=== PATIENT | male | born 1955 | race Caucasian/White ===

== ENCOUNTER 2018-06-17 14:28 | Inpatient (IN) | payer OTHER ==
[2018-06-17] MEDS ORDERED: NORMAL SALINE 1000 ML 1,000 ML IV ONE (14:59)
[2018-06-17] MEDS ORDERED: THIAMINE HCL 100 MG, FOLIC ACID 1 MG in NORMAL SALINE 250 ML IV ONE (14:59)
[2018-06-17] MEDS ORDERED: LORAZEPAM INJ 2 MG/1 ML VIAL IV ONE ×2 (14:59→17:00)
[2018-06-17] MEDS ORDERED: NICOTINE 21 MG/24 HR PATCH.TD24 TD ONE (15:05)
[2018-06-17] MEDS ORDERED: DIPH/PERTUSS(ACELL)/TETANUS VAC/PF 0.5 ML SYR (>=10YO) IM ONE (15:05)
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
[2018-06-17 16:24] LABS: ABSOLUTE BASOPHILS # (AUTO) 0.1 10^3/uL (0.0-0.2); ABSOLUTE LYMPHOCYTES (AUTO) 1.4 10^3/uL (0.5-4.7); ABSOLUTE MONOCYTES (AUTO) 0.5 10^3/uL (0.1-1.4); ABSOLUTE NEUT (AUTO) 3.3 10^3/uL (1.7-8.2); EOSINOPHILS % (AUTO) 0.3 % (0-6); HEMATOCRIT 51.8 % (37.9-51.0); HEMOGLOBIN 17.9 g/dL (13.5-17.0); LYMPHOCYTES % (AUTO) 26.5 % (13-45); MEAN CORPUSCULAR HEMOGLOBIN 33.5 pg (27.0-33.4); MEAN CORPUSCULAR HGB CONC 34.6 g/dL (32.0-36.0); MEAN CORPUSCULAR VOLUME 97 fl (80-97); MONOCYTES % (AUTO) 9.1 % (3-13); PLATELET COUNT 118 10^3/uL (150-450); RED BLOOD COUNT 5.36 10^6/uL (4.35-5.55); RED CELL DISTRIBUTION WIDTH 13.6 % (11.5-14.0); SEGMENTED NEUTROPHILS % (AUTO) 62.1 % (42-78); TOTAL CELLS COUNTED % (AUTO) 100 %; WHITE BLOOD COUNT 5.3 10^3/uL (4.0-10.5)
[2018-06-17] MEDS ORDERED: THIAMINE HCL INJ 200 MG/2 ML VIAL ONE (16:37)
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
[2018-06-17 16:46] LABS: ALANINE AMINOTRANSFERASE 131 U/L (21-72); ALBUMIN 4.7 g/dL (3.5-5.0); ALKALINE PHOSPHATASE 99 U/L (38-126); ANION GAP 14 (5-19); ASPARTATE AMINO TRANSFERASE 166 U/L (17-59); BILIRUBIN,DIRECT 0.5 mg/dL (0.0-0.4); BILIRUBIN,TOTAL 0.7 mg/dL (0.2-1.3); BLOOD UREA NITROGEN 9 mg/dL (7-20); CALCIUM 9.3 mg/dL (8.4-10.2); CARBON DIOXIDE 28 mmol/L (22-30); CHLORIDE 100 mmol/L (98-107); GLUCOSE 101 mg/dL (75-110); POTASSIUM 4.1 mmol/L (3.6-5.0); TOTAL PROTEIN 8.2 g/dL (6.3-8.2)
[2018-06-17 16:54] LABS: ACETAMINOPHEN < 10 ug/mL (10-30); SALICYLATE < 1.0 mg/dL (2.0-20.0)
[2018-06-17 16:56] LABS: ALCOHOL 328 mg/dL (NONE DETECTED)
--- NOTE | 2018-06-17 18:19 | RADIOLOGY REPORT (SQ) ---
EXAM DESCRIPTION: CT CERVICAL SPINE WITHOUT COMPLETED DATE/TIME: 06/17/2018 6:13 pm REASON FOR STUDY: fall COMPARISON: None. TECHNIQUE: Axial images acquired through the cervical spine without intravenous contrast. Images re viewed with lung, soft tissue and bone windows. Reconstructed coronal and sagittal MPR images review ed. Images stored on PACS. All CT scanners at this facility use dose modulation, iterative reconstruction, and/or weight based d osing when appropriate to reduce radiation dose to as low as reasonably achievable (ALARA). [facility]: Dose Right [facility]: CareDose [facility]: Dose Right [facility]: Teradose 4D [facility]: [employer] RADIATION DOSE: CT Rad equipment meets quality standard of care and radiation dose reduction techniq ues were employed. CTDIvol: 19.4 mGy. DLP: 405 mGy-cm. mGy. LIMITATIONS: None. FINDINGS: ALIGNMENT: Anatomic. MINERALIZATION: Normal. VERTEBRAL BODIES: No fractures or dislocation. DISCS: Multilevel disc space narrowing with osteophytes. FACETS, LATERAL MASSES, POSTERIOR ELEMENTS: Facet arthropathy. No fractures. No dislocation. No ac [place] findings. HARDWARE: None in the spine. VISUALIZED RIBS: No fractures. LUNG APICES AND SOFT TISSUES: No significant or acute findings. OTHER: No other significant finding. IMPRESSION: CHRONIC DEGENERATIVE CHANGES. NO ACUTE FINDINGS. TECHNICAL DOCUMENTATION: JOB ID: [id number] Quality ID # [id number]: Final reports with documentation of one or more dose reduction techniques (e.g., Au tomated exposure control, adjustment of the mA and/or kV according to patient size, use of iterative reconstruction technique) 2010 [employer]- All Rights Reserved Reading location - IP/workstation name: [email or web address]
--- NOTE | 2018-06-17 18:20 | RADIOLOGY REPORT (SQ) ---
EXAM DESCRIPTION: CT HEAD WITHOUT COMPLETED DATE/TIME: 06/17/2018 6:13 pm REASON FOR STUDY: fall COMPARISON: None. TECHNIQUE: Axial images acquired through the brain without intravenous contrast. Images reviewed wi th bone, brain and subdural windows. Additional sagittal and coronal reconstructions were generated. Images stored on PACS. All CT scanners at this facility use dose modulation, iterative reconstruction, and/or weight based d osing when appropriate to reduce radiation dose to as low as reasonably achievable (ALARA). [facility]: Dose Right [facility]: CareDose [facility]: Dose Right [facility]: Teradose 4D [facility]: [employer] RADIATION DOSE: CT Rad equipment meets quality standard of care and radiation dose reduction techniq ues were employed. CTDIvol: 53.2 mGy. DLP: 1017 mGy-cm. mGy. LIMITATIONS: None. FINDINGS: VENTRICLES: Normal size and contour. CEREBRUM: No masses. No hemorrhage. No midline shift. No evidence for acute infarction. Normal gra y/white matter differentiation. No areas of low density in the white matter. CEREBELLUM: No masses. No hemorrhage. No alteration of density. No evidence for acute infarction. EXTRAAXIAL SPACES: No fluid collections. No masses. ORBITS AND GLOBE: No intra- or extraconal masses. Normal contour of globe without masses. CALVARIUM: No fracture. PARANASAL SINUSES: No fluid or mucosal thickening. SOFT TISSUES: No mass or hematoma. OTHER: No other significant finding. IMPRESSION: NORMAL BRAIN CT WITHOUT CONTRAST. EVIDENCE OF ACUTE STROKE: NO. COMMENT: Quality ID # [id number]: Final reports with documentation of one or more dose reduction techniques (e.g., Automated exposure control, adjustment of the mA and/or kV according to patient size, use of iterative reconstruction technique) TECHNICAL DOCUMENTATION: JOB ID: [id number] [employer]- All Rights Reserved Reading location - IP/workstation name: [email or web address]
[2018-06-17] MEDS ORDERED: THIAMINE HCL 100 MG in NORMAL SALINE 50 ML IV ONE (19:24)
--- NOTE | 2018-06-17 19:31 | EKG REPORT ---
SEVERITY:- NORMAL ECG - SINUS RHYTHM : Confirmed by: Rom De Anda MD 17-Jun-2018 19:30:50
--- NOTE | 2018-06-17 22:08 | ER Document Report ---
ED General - General Chief Complaint: Psych Problem Stated Complaint: SUICIDAL IDEATION Time Seen by Provider: 06/17/18 14:51 Primary Care Provider: SARITHA,UZAIR [Primary Care Provider] - Follow up as needed Mode of Arrival: Medic Information source: Patient Notes: This is a 62-year-old man with a history of alcohol abuse, homelessness who was brought in by EMS with suicidal patient is an setting of alcohol intoxication. Patient does report that he has been falling in the setting of drinking alcohol. He does have some superficial abrasions to his fingers. He denies any significant pain at this time. Patient does have a history of alcohol withdrawal seizures. TRAVEL OUTSIDE OF THE [place] IN LAST 30 DAYS: No - HPI Onset: Just prior to arrival Onset/Duration: Gradual Quality of pain: No pain Severity: None Pain Level: Denies Associated symptoms: denies: Chest pain, Fever, Shortness of breath Exacerbated by: Denies Relieved by: Denies Similar symptoms previously: Yes Recently seen / treated by doctor: Yes - Related Data Allergies/Adverse Reactions: No Known Allergies Allergy (Verified 06/17/18 14:31) Past Medical History - General Information source: Patient - Social History Smoking Status: Current Every Day Smoker Cigarette use (# per day): Yes - 1 pack/day Chew tobacco use (# tins/day): No Frequency of alcohol use: Heavy Drug Abuse: None Lives with: Homeless Family History: None Patient has suicidal ideation: Yes Patient has homicidal ideation: No - Past Medical History Cardiac Medical History: Reports: Hx Hypercholesterolemia, Hx Hypertension Pulmonary Medical History: Reports: Hx COPD Renal/ Medical History: Denies: Hx Peritoneal Dialysis Musculoskeletal Medical History: Reports Hx Arthritis - bilateral hips Psychiatric Medical History: Reports: Hx Depression - Anxiety Surgical Hx: Negative Review of Systems - Review of Systems Constitutional: denies: Chills, Fever EENT: No symptoms reported Cardiovascular: denies: Chest pain, Palpitations, Heart racing Respiratory: No symptoms reported Physical Exam - Vital signs Vitals: Temp Pulse Resp BP Pulse Ox 98.2 F 106 H 20 133/65 H 99 06/17/18 14:41 06/17/18 14:41 06/17/18 14:41 06/17/18 14:41 06/17/18 14:41 Notes: Physical exam: GENERAL: Acutely intoxicated 62-year-old man. He is oriented x3. HEAD: Atraumatic, normocephalic. EYES: Pupils equal round and reactive to light, extraocular movements intact, sclera anicteric, conjunctiva are normal. ENT: TMs normal, nares patent, oropharynx clear without exudates. Moist mucous membranes. NECK: Normal range of motion, supple without obvious mass or JVD. LUNGS: Breath sounds clear to auscultation bilaterally and equal. No wheezes rales or rhonchi. HEART: Regular rate and rhythm without murmurs, rubs or gallops. ABDOMEN: Soft, normoactive bowel sounds. No tenderness to palpation. No guarding, no rebound. No masses appreciated. EXTREMITIES: Normal range of motion, no pitting or edema. No clubbing or cyanosis. NEUROLOGICAL: Cranial nerves II through XII grossly intact. Normal speech, moving all extremities. PSYCH: Normal mood, normal affect. SKIN: Patient does have abrasions to the fingers. Course - Vital Signs Vital signs: Temp Pulse Resp BP Pulse Ox 98.2 F 106 H 24 H 133/65 H 92 06/17/18 14:41 06/17/18 14:41 06/17/18 19:25 06/17/18 14:41 06/17/18 19:25 - Laboratory Result Diagrams: 06/17/18 15:50 06/17/18 15:50 Laboratory results interpreted by me: 06/17/18 06/17/18 15:50 15:50 Hgb 17.9 H Hct 51.8 H MCH 33.5 H Plt Count 118 L Direct Bilirubin 0.5 H AST 166 H ALT 131 H Salicylates < 1.0 L Acetaminophen < 10 L Serum Alcohol 328 H* - Diagnostic Test Radiology reviewed: Image reviewed, Reports reviewed - CT of the head shows no acute bleed. CT of the cervical spine shows no acute fractures. - EKG Interpretation by Ks Rhythm: NSR - EKG shows normal sinus rhythm with a ventricular rate of 96, no acute ST-T wave changes. QT corrected is 440 Discharge - Discharge Clinical Impression: Acute alcohol intoxication, Suicidal ideation Condition: Stable Disposition: PSYCH HOSP/UNIT [facility] - Follow up as needed
[2018-06-18] MEDS: LORAZEPAM 1 MG TABLET PO PRN ×2 (00:34→04:55)
[2018-06-18] MEDS ORDERED: DIAZEPAM INJ 10 MG/2 ML DISP.SYRIN IV ONE (05:05)
[2018-06-18] MEDS ORDERED: LORAZEPAM 1 MG TABLET ONE (05:58)
[2018-06-18 08:10] LABS: APPEARANCE,URINE CLEAR; BILIRUBIN,URINE NEGATIVE (NEGATIVE); COLOR,URINE YELLOW; GLUCOSE, URINE NEGATIVE (NEGATIVE); KETONES,URINE NEGATIVE (NEGATIVE); LEUKOCYTE ESTERASE,URINE NEGATIVE (NEGATIVE); NITRITE,URINE NEGATIVE (NEGATIVE); PROTEIN,URINE NEGATIVE (NEGATIVE); UROBILINOGEN,URINE NEGATIVE mg/dL (<2.0)
[2018-06-18 08:36] LABS: URINE AMPHETAMINES SCREEN NEGATIVE; URINE BARBITURATES SCREEN NEGATIVE; URINE BENZODIAZEPINES SCREEN UNCONFIRMED POSITIVE; URINE COCAINE SCREEN NEGATIVE; URINE MARIJUANA (THC) SCREEN NEGATIVE; URINE METHADONE SCREEN NEGATIVE; URINE PHENCYCLIDINE SCREEN NEGATIVE
[2018-06-18] MEDS ORDERED: ONDANSETRON 4 MG TAB.RAPDIS PO PRN (09:56)
--- NOTE | 2018-06-18 09:56 | ER Document Report ---
Doctor's Note Notes: 06/18/18 09:50 Rounds: Chart reviewed and patient interviewed. Patient came in complaining of feeling suicidal and being depressed. Summary of his visit: Patient is homeless for the past 3-4 days. Heavy alcohol drinker. History of PTSD. Patient says he is been unable to walk for the past week. Has fine tremor of both hands whenever he is not drinking alcohol. When he came in yesterday afternoon, his blood alcohol was 328. He says his last alcohol intake was about 9 AM yesterday morning when he had a beer. Only other significant labs as his hemoglobin is 17.9. Patient is a cigarette smoker. Patient has not exhibited any altered mental status. He had CT scan of his head which was normal. Patient' has not shown any altered mental status, but has complained of having a "Shitty diaper" on several times in the nursing staff says that he does not have any soiled diapers on.. Vital signs have been essentially normal except for his tachycardia of about 120. His oxygen saturation is in the low 90s on 2 L of oxygen. Patient has a history of COPD. Not on any medications. Patient has a fine tremor of both hands. Cannot stand. Has been requiring fairly significant doses of Ativan for sedation. Patient is obviously unable to be discharged as an outpatient so hospitalist was called and patient will be admitted to [facility] for alcohol withdrawal, pending DTs, alcohol abuse, PTSD, suicidal ideation and depression.
--- NOTE | 2018-06-18 10:11 | PSYCHOLOGICAL NOTE ---
Psych Note - Psych Note Date seen by psych provider: 06/18/18 Time seen by psych provider: 07:55 Psych Note: Reason for consult: SI, ETOH detox Contact Permissions: None Patient is a 62 yo male presenting to the ED via EMS for concerns of ETOH detox, SI, and homelessness. Check in conducted with patient patient continues to endorse passive suicidal ideation; 'I don't want to be here but I don't want to do anything myself (when discussing suicide)." Patient continues to present dysphoric with significant tremors. Patient reports not feeling well due to the alcohol withdrawal. Patient is having difficultly with evaluation due to active withdrawal. Head CT 06/17/2018 No findings No medication recommendations at this time Diagnosis: Alcohol Use Disorder Severe Homelessness Major Depressive Disorder, per pt hx Post Traumatic Stress Disorder, per pt hx Impression/Plan: Patient is recommended for continued IVC. Patient reports plan of hanging himself upon arrival to [facility] ED, today denies plan but continues to endorse suicidal ideation. Patient is having difficultly with evaluation due to medical status; active withdrawal from alcohol. Patient will be re-evaluated. Consulted Dr. Chavez in the care and treatment of this patient and ED physician who is in agreement with disposition and recommendation.
--- NOTE | 2018-06-18 10:28 | RADIOLOGY REPORT (SQ) ---
EXAM DESCRIPTION: CHEST SINGLE VIEW COMPLETED DATE/TIME: 06/18/2018 10:15 am REASON FOR STUDY: copd COMPARISON: None. EXAM PARAMETERS: NUMBER OF VIEWS: One view. TECHNIQUE: Single frontal radiographic view of the chest acquired. RADIATION DOSE: NA LIMITATIONS: None. FINDINGS: LUNGS AND PLEURA: No opacities, masses or pneumothorax. No pleural effusion. MEDIASTINUM AND HILAR STRUCTURES: No masses. Contour normal. HEART AND VASCULAR STRUCTURES: Heart normal in size. Normal vasculature. BONES: No acute findings. HARDWARE: None in the chest. OTHER: No other significant finding. IMPRESSION: 1. NO ACUTE RADIOGRAPHIC FINDING IN THE CHEST. TECHNICAL DOCUMENTATION: JOB ID: [id number] [employer]- All Rights Reserved Reading location - IP/workstation name: [email or web address]
[2018-06-18] MEDS ORDERED: METOPROLOL TARTRATE PF/INJ 5 MG/5 ML SDV IV PRN (10:31)
[2018-06-18] MEDS: ENOXAPARIN SODIUM INJ 30 MG/0.3 ML DISP.SYRIN SUBCUT SCH (10:38)
[2018-06-18] MEDS: LORAZEPAM INJ 2 MG/1 ML VIAL IV PRN ×3 (10:38→18:39)
[2018-06-18] MEDS: FAMOTIDINE 20 MG TABLET PO SCH ×2 (10:38→22:31)
[2018-06-18] MEDS: METOPROLOL SUCCINATE 25 MG TAB.SR.24H PO SCH (11:23)
[2018-06-18] MEDS: DIAZEPAM 5 MG TABLET PO SCH ×2 (11:23→17:52)
[2018-06-18] MEDS: NICOTINE 21 MG/24 HR PATCH.TD24 TD SCH (11:24)
[2018-06-18] MEDS: BEER PO SCH ×2 (11:25→13:52)
[2018-06-18 14:37] LABS: ALANINE AMINOTRANSFERASE 100 U/L (21-72); ALKALINE PHOSPHATASE 116 U/L (38-126); ANION GAP 11 (5-19); ASPARTATE AMINO TRANSFERASE 142 U/L (17-59); BILIRUBIN,DIRECT 0.4 mg/dL (0.0-0.4); BILIRUBIN,TOTAL 1.4 mg/dL (0.2-1.3); BLOOD UREA NITROGEN 10 mg/dL (7-20); CALCIUM 9.3 mg/dL (8.4-10.2); CARBON DIOXIDE 27 mmol/L (22-30); CHLORIDE 99 mmol/L (98-107); GLUCOSE 83 mg/dL (75-110); POTASSIUM 3.5 mmol/L (3.6-5.0); TOTAL PROTEIN 6.8 g/dL (6.3-8.2)
[2018-06-18 16:08] LABS: HEMATOCRIT 43.5 % (37.9-51.0); MEAN CORPUSCULAR HEMOGLOBIN 33.6 pg (27.0-33.4); MEAN CORPUSCULAR HGB CONC 34.9 g/dL (32.0-36.0); MEAN CORPUSCULAR VOLUME 96 fl (80-97); RED BLOOD COUNT 4.53 10^6/uL (4.35-5.55); RED CELL DISTRIBUTION WIDTH 13.3 % (11.5-14.0); WHITE BLOOD COUNT 5.9 10^3/uL (4.0-10.5)
[2018-06-18 16:26] LABS: HEMOGLOBIN 15.2 g/dL (13.5-17.0); PLATELET COUNT 85 10^3/uL (150-450)
--- NOTE | 2018-06-18 17:03 | PDOC H&P ---
History of Present Illness Admission Date/PCP: 06/18/18 10:04 [facility] Patient complains of: SI. ETOH INTOXICATION. History of Present Illness: JASMEET RIBEIRO is a 62 year old male who presented to [facility] for ETOH intoxication and suicidal ideation. The patient states he moved to [place] to live with his son, "which has been a nightmare." He states he recently became homeless because he "no longer lives with" his son - does not indicate if he left on his own or if son kicked him out. The patient stated he has a plan to hang himself. Upon arrival to the ED the patient's BAL was 328. The patient was seen by PSYCH and placed on IVC papers. Unfortunately, the patient remained in the emergency department for nearly 24 hours before being admitted to the hospitalist service. During that time the patient received multiple IVF boluses and doses of Ativan, but he was deemed unfit for discharge by the ED physician. Upon assessment, the patient is resting in bed on room air. He is tachycardic, hypertensive, agitated, anxious, tremulous and having difficulty answering all interview questions appropriately. The patient has no major complaints at the time of the interview other than feeling anxious. When asked about his suicidal ideation it is "beginning to improve," he no longer feels "as bad" as when he checked in. Patient endorses a history of seizures when withdrawing from alcohol. States no one has ever witnessed him having a seizure, but he will "wake up on the floor and feel very disoriented." The patient states that he wants to get help, that he wants to stop drinking, and that he wants to move away from [place]. The patient states he has a number of relatives that live out of state who can help support him. Patient was seen by a member of the psych team, who felt that the patient needed to be placed on IVC papers. The patient was admitted to the hospitalist service for ETOH withdrawal. Past Medical History Cardiac Medical History: Reports: Hyperlipidema, Hypertension Pulmonary Medical History: Reports: Chronic Obstructive Pulmonary Disease (COPD) Musculoskeltal Medical History: Reports: Arthritis - bilateral hips Psychiatric Medical History: Reports: Alcohol Dependency, Depression - Anxiety, Post Traumatic Stress Disorder, Tobacco Dependency Past Surgical History Past Surgical History: Reports: None Social History Information Source: Patient Lives with: Homeless - previously lived with son Smoking Status: Current Every Day Smoker Frequency of Alcohol Use: Heavy - 4-5 40oz beers per day Drugs: None Hx Prescription Drug Abuse: No - Advance Directive Resuscitation Status: Full Code Family History Family History: Malignancy Parental Family History Reviewed: Yes Children Family History Reviewed: Yes Sibling(s) Family History Reviewed.: Yes Medication/Allergy Home Medications: No Home Medications 06/17/18 Allergies/Adverse Reactions: No Known Allergies Allergy (Verified 06/17/18 14:31) Review of Systems ROS unobtainable: Due to mental status Physical Exam Vital Signs: Temp Pulse Resp BP Pulse Ox 98.2 F 106 H 22 H 123/104 H 90 L 06/17/18 14:41 06/17/18 14:41 06/18/18 13:00 06/18/18 12:01 06/18/18 12:01 Intake & Output 06/17/18 06/18/18 06/19/18 06:59 06:59 06:59 Intake Total 1301.2 Balance 1301.2 Weight 167 kg General appearance: PRESENT: disheveled Head exam: PRESENT: atraumatic Eye exam: PRESENT: conjunctiva pink, PERRLA Mouth exam: PRESENT: moist, tongue midline Neck exam: PRESENT: full ROM Respiratory exam: PRESENT: clear to auscultation glenroy, symmetrical, unlabored Cardiovascular exam: PRESENT: tachycardia Pulses: PRESENT: normal radial pulses, normal dorsalis pedis pul Vascular exam: PRESENT: normal capillary refill GI/Abdominal exam: PRESENT: normal bowel sounds, soft. ABSENT: distended, tenderness Rectal exam: PRESENT: deferred Extremities exam: PRESENT: full ROM. ABSENT: pedal edema Musculoskeletal exam: PRESENT: full ROM, normal inspection Neurological exam: PRESENT: alert, awake, oriented to person, oriented to place, oriented to time, oriented to situation Psychiatric exam: PRESENT: agitated, anxious, suicidal ideation - endorses plan of hanging himself Skin exam: PRESENT: intact, other - multiple areas of bruising on the upper and lower extremities Results Laboratory Results: 06/18/18 14:17 06/18/18 14:00 06/17/18 06/17/18 06/17/18 15:50 15:50 15:50 WBC 5.3 RBC 5.36 Hgb 17.9 H Hct 51.8 H MCV 97 MCH 33.5 H MCHC 34.6 RDW 13.6 Plt Count 118 L Seg Neutrophils % 62.1 Lymphocytes % 26.5 Monocytes % 9.1 Eosinophils % 0.3 Basophils % 2.0 Absolute Neutrophils 3.3 Absolute Lymphocytes 1.4 Absolute Monocytes 0.5 Absolute Eosinophils 0.0 Absolute Basophils 0.1 Sodium 142.0 Potassium 4.1 Chloride 100 Carbon Dioxide 28 Anion Gap 14 BUN 9 Creatinine 1.17 Est GFR ( Amer) > 60 Est GFR (Non-Af Amer) > 60 Glucose 101 Calcium 9.3 Magnesium 2.1 Total Bilirubin 0.7 AST 166 H ALT 131 H Alkaline Phosphatase 99 Total Protein 8.2 Albumin 4.7 Urine Color Urine Appearance Urine pH Ur Specific [place] Urine Protein Urine Glucose (UA) Urine Ketones Urine Blood Urine Nitrite Ur Leukocyte Esterase Urine WBC (Auto) Urine RBC (Auto) 06/18/18 06/18/18 06/18/18 07:56 14:00 14:00 WBC RBC Hgb Hct MCV MCH MCHC RDW Plt Count Seg Neutrophils % Lymphocytes % Monocytes % Eosinophils % Basophils % Absolute Neutrophils Absolute Lymphocytes Absolute Monocytes Absolute Eosinophils Absolute Basophils Sodium 137.0 Potassium 3.5 L Chloride 99 Carbon Dioxide 27 Anion Gap 11 BUN 10 Creatinine 0.83 Est GFR ( Amer) > 60 Est GFR (Non-Af Amer) > 60 Glucose 83 Calcium 9.3 Magnesium 1.7 Total Bilirubin 1.4 H AST 142 H ALT 100 H Alkaline Phosphatase 116 Total Protein 6.8 Albumin 4.0 Urine Color YELLOW Urine Appearance CLEAR Urine pH 5.0 Ur Specific [place] 1.020 Urine Protein NEGATIVE Urine Glucose (UA) NEGATIVE Urine Ketones NEGATIVE Urine Blood SMALL H Urine Nitrite NEGATIVE Ur Leukocyte Esterase NEGATIVE Urine WBC (Auto) 1 Urine RBC (Auto) 1 06/18/18 14:17 WBC Cancelled RBC Cancelled Hgb Cancelled Hct Cancelled MCV Cancelled MCH Cancelled MCHC Cancelled RDW Cancelled Plt Count Cancelled Seg Neutrophils % Lymphocytes % Monocytes % Eosinophils % Basophils % Absolute Neutrophils Absolute Lymphocytes Absolute Monocytes Absolute Eosinophils Absolute Basophils Sodium Potassium Chloride Carbon Dioxide Anion Gap BUN Creatinine Est GFR ( Amer) Est GFR (Non-Af Amer) Glucose Calcium Magnesium Total Bilirubin AST ALT Alkaline Phosphatase Total Protein Albumin Urine Color Urine Appearance Urine pH Ur Specific [place] Urine Protein Urine Glucose (UA) Urine Ketones Urine Blood Urine Nitrite Ur Leukocyte Esterase Urine WBC (Auto) Urine RBC (Auto) Impressions: Cervical Spine CT 06/17/18 17:01 IMPRESSION: CHRONIC DEGENERATIVE CHANGES. NO ACUTE FINDINGS. Head CT 06/17/18 17:01 IMPRESSION: NORMAL BRAIN CT WITHOUT CONTRAST. EVIDENCE OF ACUTE STROKE: NO. Chest X-Ray 06/18/18 09:38 IMPRESSION: 1. NO ACUTE RADIOGRAPHIC FINDING IN THE CHEST. Status: Imported from PACS Assessment and Plan - Diagnosis (1) Alcohol withdrawal Is this a current diagnosis for this admission?: Yes Plan: Last ETOH intake 06/17/18 0900 Patient endorses drinking 4-5 40 ounce beers per day Patient observed to be tremulous and having difficulty answering questions appropriately Admits to having seizures when withdrawing from alcohol Head CT WNL IV Ativan 2 mg as needed every 4 hours for agitation/anxiety/withdrawal Scheduled p.o. Valium 10 mg every 8 hours Banana bag IV nightly P.o. folic acid nightly 1 can of beer 3 times daily with meals Observe closely for seizure activity Placed on seizure precautions (2) Suicidal ideation Is this a current diagnosis for this admission?: Yes Plan: Initially presented to [facility] ED complaining of suicidal ideation endorses plan of hanging himself When evaluated 24 hours later, the patient states that he "does not want to be here anymore" but denies specific suicide plan Patient has been seen by psych who feel the patient needs to remain under IVC 1:1 sitter for safety Suicidal precautions (3) HTN (hypertension) Is this a current diagnosis for this admission?: Yes Plan: Patient denies history of HTN Likely secondary to EtOH withdrawal As needed metoprolol IV for SBP>170 - Time Time Spent with patient: 15-24 minutes Medications reviewed and adjusted accordingly: Yes Anticipated discharge: Home - Inpatient Certification Based on my medical assessment, after consideration of the patient's comorbidities, presenting symptoms, or acuity I expect that the services needed warrant INPATIENT care.: Yes I certify that my determination is in accordance with my understanding of Medicare's requirements for reasonable and necessary INPATIENT services [42 CFR 412.3e].: Yes Medical Necessity: Need Close Monitoring Due to Risk of Patient Decompensation, Need For Continuous Telemetry Monitoring, Risk of Complication if Not Cared For in Hospital
[2018-06-18] MEDS: NORMAL SALINE 1000 ML 1,000 ML with POTASSIUM CHLORIDE 20 MEQ, MAGNESIUM SULFATE 8 MEQ,... IV SCH ×5 (18:38)
[2018-06-18] MEDS: FOLIC ACID 1 MG TABLET PO SCH (19:37)
[2018-06-18] MEDS ORDERED: HALOPERIDOL LACTATE INJ 5 MG/1 ML VIAL IV ONE ×2 (20:00)
[2018-06-18] MEDS ORDERED: LORAZEPAM INJ 2 MG/1 ML VIAL IV ONE (20:30)
[2018-06-19] MEDS: LORAZEPAM INJ 2 MG/1 ML VIAL IV PRN ×5 (00:31→22:54)
[2018-06-19] MEDS: RINGERS SOLUTION,LACTATED 1,000 ML IV PRN (01:40)
[2018-06-19] MEDS: DIAZEPAM 5 MG TABLET PO SCH ×3 (02:38→18:06)
[2018-06-19 05:30] LABS: ABSOLUTE BASOPHILS # (AUTO) 0.1 10^3/uL (0.0-0.2); ABSOLUTE EOSINOPHILS # (AUTO) 0.1 10^3/uL (0.0-0.6); ABSOLUTE LYMPHOCYTES (AUTO) 1.5 10^3/uL (0.5-4.7); ABSOLUTE MONOCYTES (AUTO) 0.8 10^3/uL (0.1-1.4); ABSOLUTE NEUT (AUTO) 4.5 10^3/uL (1.7-8.2); BASOPHILS % (AUTO) 0.9 % (0-2); EOSINOPHILS % (AUTO) 1.1 % (0-6); HEMATOCRIT 43.7 % (37.9-51.0); HEMOGLOBIN 15.4 g/dL (13.5-17.0); LYMPHOCYTES % (AUTO) 21.5 % (13-45); MEAN CORPUSCULAR HEMOGLOBIN 33.7 pg (27.0-33.4); MEAN CORPUSCULAR HGB CONC 35.2 g/dL (32.0-36.0); MEAN CORPUSCULAR VOLUME 96 fl (80-97); RED BLOOD COUNT 4.56 10^6/uL (4.35-5.55); RED CELL DISTRIBUTION WIDTH 12.9 % (11.5-14.0); SEGMENTED NEUTROPHILS % (AUTO) 65.5 % (42-78); TOTAL CELLS COUNTED % (AUTO) 100 %; WHITE BLOOD COUNT 6.8 10^3/uL (4.0-10.5)
[2018-06-19 05:46] LABS: ALANINE AMINOTRANSFERASE 76 U/L (21-72); ALBUMIN 3.7 g/dL (3.5-5.0); ALKALINE PHOSPHATASE 85 U/L (38-126); ANION GAP 9 (5-19); ASPARTATE AMINO TRANSFERASE 86 U/L (17-59); BILIRUBIN,DIRECT 0.5 mg/dL (0.0-0.4); BILIRUBIN,TOTAL 1.5 mg/dL (0.2-1.3); BLOOD UREA NITROGEN 9 mg/dL (7-20); CALCIUM 8.9 mg/dL (8.4-10.2); CARBON DIOXIDE 25 mmol/L (22-30); CHLORIDE 101 mmol/L (98-107); CHOLESTEROL 183.76 mg/dL (0-200); GLUCOSE 102 mg/dL (75-110); POTASSIUM 3.2 mmol/L (3.6-5.0); SODIUM 135.1 mmol/L (137-145); TOTAL PROTEIN 6.4 g/dL (6.3-8.2); TRIGLYCERIDES 135 mg/dL (<150)
[2018-06-19 05:57] LABS: DIRECT LDL 78 mg/dL (<100)
[2018-06-19 06:04] LABS: PLATELET COUNT 75 10^3/uL (150-450)
--- NOTE | 2018-06-19 07:48 | EKG REPORT ---
SEVERITY:- NORMAL ECG - SINUS RHYTHM : Confirmed by: Rom De Anda MD 19-Jun-2018 07:47:35
[2018-06-19] MEDS: BEER 12 OZ CAN PO SCH ×3 (11:22→14:17)
[2018-06-19] MEDS: ENOXAPARIN SODIUM INJ 30 MG/0.3 ML DISP.SYRIN SUBCUT SCH (11:22)
[2018-06-19] MEDS: METOPROLOL SUCCINATE 25 MG TAB.SR.24H PO SCH (13:48)
[2018-06-19] MEDS: FAMOTIDINE 20 MG TABLET PO SCH ×2 (13:48→21:26)
--- NOTE | 2018-06-19 15:15 | PSYCHOLOGICAL NOTE ---
Psych Note - Psych Note Date seen by psych provider: 06/19/18 Time seen by psych provider: 08:10 Psych Note: Reason for consult: SI, ETOH detox Contact Permissions: None Patient is a 62 yo male presenting to the ED via EMS for concerns of ETOH detox, SI, and homelessness. Check in conducted with patient patient is currently unable to participate in evaluation. Patient required medication to control symptoms. Head CT 06/17/2018 No findings No medication recommendations at this time Diagnosis: Alcohol Use Disorder Severe Homelessness Major Depressive Disorder, per pt hx Post Traumatic Stress Disorder, per pt hx Impression/Plan: Patient is recommended for continued IVC. Patient reported a plan of hanging himself upon arrival to [facility] ED, Patient is unable to engage in evaluation due to medical status; active withdrawal from alcohol. Patient will be re-evaluated. Consulted Dr. Chavez in the care and treatment of this patient and ED physician who is in agreement with disposition and recommendation.
--- NOTE | 2018-06-19 15:29 | PDOC PROGRESS REPORT ---
Subjective Progress Note for:: 06/19/18 Subjective:: No adverse events overnight. Had to get some doses of medication including a dose of Haldol last night for severe agitation. He was sleeping hard whenever I saw him this morning. Vital signs been stable. Reason For Visit: ETOH WITHDRAWAL, SUICIDAL IDEATION, Physical Exam Vital Signs: Temp Pulse Resp BP Pulse Ox 97.4 F 95 20 158/91 H 95 06/19/18 11:37 06/19/18 11:37 06/19/18 11:37 06/19/18 11:37 06/19/18 11:37 Intake & Output 06/18/18 06/19/18 06/20/18 06:59 06:59 06:59 Intake Total 1301.2 1358 Output Total 100 Balance 1301.2 1258 Weight 167 kg 67.1 kg General appearance: PRESENT: no acute distress, other - Somnolent Respiratory exam: PRESENT: clear to auscultation gl[place], symmetrical, unlabored. ABSENT: accessory muscle use, crackles, prolonged expiratory phas, rhonchi, tachypnea, wheezes Cardiovascular exam: PRESENT: RRR, +S1, +S2 Pulses: PRESENT: normal carotid pulses Vascular exam: PRESENT: normal capillary refill GI/Abdominal exam: PRESENT: normal bowel sounds, soft. ABSENT: distended, guarding, rebound, tenderness Extremities exam: ABSENT: clubbing, pedal edema Musculoskeletal exam: PRESENT: normal inspection. ABSENT: deformity Neurological exam: PRESENT: other - asleep, had recently gotten medication Skin exam: PRESENT: dry, warm Results Laboratory Results: 06/19/18 04:53 06/19/18 04:53 06/18/18 06/19/18 06/19/18 15:50 04:53 04:53 WBC 5.9 6.8 RBC 4.53 4.56 Hgb 15.2 D 15.4 Hct 43.5 43.7 MCV 96 96 MCH 33.6 H 33.7 H MCHC 34.9 35.2 RDW 13.3 12.9 Plt Count 85 L 75 L Seg Neutrophils % 65.5 Lymphocytes % 21.5 Monocytes % 11.0 Eosinophils % 1.1 Basophils % 0.9 Absolute Neutrophils 4.5 Absolute Lymphocytes 1.5 Absolute Monocytes 0.8 Absolute Eosinophils 0.1 Absolute Basophils 0.1 Sodium 135.1 L Potassium 3.2 L Chloride 101 Carbon Dioxide 25 Anion Gap 9 BUN 9 Creatinine 0.73 Est GFR ( Amer) > 60 Est GFR (Non-Af Amer) > 60 Glucose 102 Calcium 8.9 Total Bilirubin 1.5 H AST 86 H ALT 76 H Alkaline Phosphatase 85 Total Protein 6.4 Albumin 3.7 Triglycerides 135 Cholesterol 183.76 LDL Cholesterol Direct 78 VLDL Cholesterol 27.0 HDL Cholesterol 90 TSH 06/19/18 04:53 WBC RBC Hgb Hct MCV MCH MCHC RDW Plt Count Seg Neutrophils % Lymphocytes % Monocytes % Eosinophils % Basophils % Absolute Neutrophils Absolute Lymphocytes Absolute Monocytes Absolute Eosinophils Absolute Basophils Sodium Potassium Chloride Carbon Dioxide Anion Gap BUN Creatinine Est GFR ( Amer) Est GFR (Non-Af Amer) Glucose Calcium Total Bilirubin AST ALT Alkaline Phosphatase Total Protein Albumin Triglycerides Cholesterol LDL Cholesterol Direct VLDL Cholesterol HDL Cholesterol TSH 2.62 06/19/18 04:53 NT-Pro-B Natriuret Pep 394 Impressions: Cervical Spine CT 06/17/18 17:01 IMPRESSION: CHRONIC DEGENERATIVE CHANGES. NO ACUTE FINDINGS. Head CT 06/17/18 17:01 IMPRESSION: NORMAL BRAIN CT WITHOUT CONTRAST. EVIDENCE OF ACUTE STROKE: NO. Chest X-Ray 06/18/18 09:38 IMPRESSION: 1. NO ACUTE RADIOGRAPHIC FINDING IN THE CHEST. Assessment and Plan - Diagnosis (1) Alcohol withdrawal Qualifiers: Complication of substance-induced condition: with delirium Qualified Code(s): F10.231 - Alcohol dependence with withdrawal delirium Is this a current diagnosis for this admission?: Yes Plan: Continue as needed medication to get him for alcohol withdrawal. Once he is not delirious we will get a psychiatry consult - Time Time Spent with patient: 15-24 minutes
[2018-06-19] MEDS: NICOTINE 21 MG/24 HR PATCH.TD24 TD SCH (17:24)
[2018-06-19] MEDS: NORMAL SALINE 1000 ML 1,000 ML with POTASSIUM CHLORIDE 20 MEQ, MAGNESIUM SULFATE 8 MEQ,... IV SCH ×5 (18:07)
[2018-06-19] MEDS: FOLIC ACID 1 MG TABLET PO SCH (18:14)
[2018-06-20] MEDS: RINGERS SOLUTION,LACTATED 1,000 ML IV PRN ×2 (01:34→08:53)
[2018-06-20] MEDS: DIAZEPAM 5 MG TABLET PO SCH ×3 (01:34→17:50)
[2018-06-20] MEDS: LORAZEPAM INJ 2 MG/1 ML VIAL IV PRN ×4 (03:31→22:42)
[2018-06-20] MEDS: BEER 12 OZ CAN PO SCH ×3 (06:27→17:53)
[2018-06-20] MEDS: ENOXAPARIN SODIUM INJ 30 MG/0.3 ML DISP.SYRIN SUBCUT SCH (09:02)
[2018-06-20] MEDS: NICOTINE 21 MG/24 HR PATCH.TD24 TD SCH (09:04)
[2018-06-20] MEDS: FAMOTIDINE 20 MG TABLET PO SCH ×2 (12:29→22:42)
[2018-06-20] MEDS: METOPROLOL SUCCINATE 25 MG TAB.SR.24H PO SCH (12:29)
--- NOTE | 2018-06-20 15:35 | PDOC PROGRESS REPORT ---
Subjective Progress Note for:: 06/20/18 Subjective:: No adverse events overnight. When he is medicated he does fine but whenever he wakes up he is apparently extremely tremulous and encephalopathic, and he apparently defecated all over the bed again today. We are pushing off on medicating him for as long as possible but he gets to the point where his withdrawal symptoms are too severe and he requires medication to keep it from getting worse. Reason For Visit: ETOH WITHDRAWAL, SUICIDAL IDEATION, Physical Exam Vital Signs: Temp Pulse Resp BP Pulse Ox 98.2 F 99 16 137/77 H 92 06/20/18 08:52 06/20/18 14:00 06/20/18 08:52 06/20/18 08:52 06/20/18 08:52 Intake & Output 06/19/18 06/20/18 06/21/18 06:59 06:59 06:59 Intake Total 1358 2573 732 Output Total 100 340 Balance 1258 2233 732 Weight 67.1 kg 69.1 kg General appearance: PRESENT: no acute distress, other - Somnolent Respiratory exam: PRESENT: clear to auscultation [place], symmetrical, unlabored. ABSENT: accessory muscle use, crackles, prolonged expiratory phas, rhonchi, t achypnea, wheezes Cardiovascular exam: PRESENT: RRR, +S1, +S2 Pulses: PRESENT: normal carotid pulses Vascular exam: PRESENT: normal capillary refill GI/Abdominal exam: PRESENT: normal bowel sounds, soft. ABSENT: distended, guarding, rebound, tenderness Extremities exam: ABSENT: clubbing, pedal edema Musculoskeletal exam: PRESENT: normal inspection. ABSENT: deformity Neurological exam: PRESENT: other - asleep, had recently gotten medication Skin exam: PRESENT: dry, warm Results Laboratory Results: 06/19/18 04:53 06/19/18 04:53 06/19/18 04:53 NT-Pro-B Natriuret Pep 394 Impressions: Cervical Spine CT 06/17/18 17:01 IMPRESSION: CHRONIC DEGENERATIVE CHANGES. NO ACUTE FINDINGS. Head CT 06/17/18 17:01 IMPRESSION: NORMAL BRAIN CT WITHOUT CONTRAST. EVIDENCE OF ACUTE STROKE: NO. Chest X-Ray 06/18/18 09:38 IMPRESSION: 1. NO ACUTE RADIOGRAPHIC FINDING IN THE CHEST. Assessment and Plan - Diagnosis (1) Alcohol withdrawal Qualifiers: Complication of substance-induced condition: with delirium Qualified Code(s): F10.231 - Alcohol dependence with withdrawal delirium Is this a current diagnosis for this admission?: Yes Plan: Continue as needed medication to get him for alcohol withdrawal. Once he is not delirious we will get a psychiatry consult, but at this point we over the medica tion wears off he is still too encephalopathic to be able to participate in a conversation with psychiatry. He is also getting vitamin supplementation. - Time Time Spent with patient: 15-24 minutes
--- NOTE | 2018-06-20 15:41 | PSYCHOLOGICAL NOTE ---
Psych Note - Psych Note Date seen by psych provider: 06/20/18 Time seen by psych provider: 12:30 Psych Note: Reason for consult: SI, ETOH detox Contact Permissions: None Patient is a 62 yo male presenting to the ED via EMS for concerns of ETOH detox, SI, and homelessness. Check in conducted with patient Patient was able to engage with clinician for evaluation. He reports that he was experiencing suicidal ideation before coming to [facility] but denies current. He reports that even when he was having suicidal ideation he denies intent stating he thought of a friend who did harm himself; "I would never do that to my family." He reports he has been feeling much better is starting to get some strength back into his limbs. He is interested in assistance with substance abuse rehab upon discharge. He has not [facility] up with the local [facility] as his previous [facility] clinic was in [place]. Patient confirms he would like assistance with resources in regards to being homeless. Head CT 06/17/2018 No findings No medication recommendations at this time Diagnosis: Alcohol Use Disorder Severe Homelessness Major Depressive Disorder, per pt hx Post Traumatic Stress Disorder, per pt hx Impression/Plan: Patient is recommended for rescind of IVC and is cleared from acute psychiatric services. No longer meets IVC criteria per [place] GS 122C. Patient reports passive suicidal ideation i.e. no plans means or intent prior to arrival to [facility]. Patient denies current suicidal ideation. Patient would like assistance with continued rehab after discharge for substance abuse treatment. Patient is a [facility] patient and needs to establish services in the local area. He previously was established at [place]. In order to obtain services through the [facility] he must have an appointment at the local [place] clinic. Please notify the behavioral health team approximate 48 hours prior to discharge to help facilitate VA appointment. Patient will also receive resource information for veterans that are homeless at that time. Dr. Chavez was consulted and the care management of this patient; attending physicians in agreement with recommendations and disposition.
[2018-06-20] MEDS: FOLIC ACID 1 MG TABLET PO SCH (17:50)
[2018-06-20] MEDS: NORMAL SALINE 1000 ML 1,000 ML with POTASSIUM CHLORIDE 20 MEQ, MAGNESIUM SULFATE 8 MEQ,... IV SCH ×5 (17:52)
[2018-06-21] MEDS: DIAZEPAM 5 MG TABLET PO SCH ×2 (01:53→09:27)
[2018-06-21] MEDS: LORAZEPAM INJ 2 MG/1 ML VIAL IV PRN (05:07)
[2018-06-21] MEDS: NORMAL SALINE 1000 ML 1,000 ML IV PRN ×3 (06:11→15:44)
[2018-06-21] MEDS: BEER 12 OZ CAN PO SCH ×4 (09:25→18:54)
[2018-06-21] MEDS: NICOTINE 21 MG/24 HR PATCH.TD24 TD SCH (09:26)
[2018-06-21] MEDS: METOPROLOL SUCCINATE 25 MG TAB.SR.24H PO SCH (09:26)
[2018-06-21] MEDS: ENOXAPARIN SODIUM INJ 30 MG/0.3 ML DISP.SYRIN SUBCUT SCH (09:26)
[2018-06-21] MEDS: FAMOTIDINE 20 MG TABLET PO SCH ×2 (09:27→21:26)
[2018-06-21] MEDS ORDERED: LORAZEPAM INJ 2 MG/1 ML VIAL IV PRN (10:11)
--- NOTE | 2018-06-21 14:16 | PDOC PROGRESS REPORT ---
Subjective Progress Note for:: 06/21/18 Subjective:: No adverse events overnight. Vital signs been stable. He is been more awake today. He still somewhat tremulous but is able to talk and interact and hold a conversation today. He says he does want to stop drinking and wants to see if he can get into a rehab through the [facility]. He denied any suicidal ideation to psychiatry and they have recommended that his IVC be rescinded. Reason For Visit: ETOH WITHDRAWAL, SUICIDAL IDEATION, Physical Exam Vital Signs: Temp Pulse Resp BP Pulse Ox 97.7 F 82 19 152/87 H 95 06/21/18 11:21 06/21/18 11:21 06/21/18 11:21 06/21/18 11:21 06/21/18 11:21 Intake & Output 06/20/18 06/21/18 06/22/18 06:59 06:59 06:59 Intake Total 2573 4773 Output Total 340 1270 Balance 2233 3503 Weight 69.1 kg 68.8 kg General appearance: PRESENT: no acute distress, cooperative, disheveled, other - Tremulous Teeth exam: PRESENT: poor dentation Respiratory exam: PRESENT: clear to auscultation gl[place], symmetrical, unlabored. ABSENT: accessory muscle use, crackles, prolonged expiratory phas, rhonchi, tachypnea, wheezes Cardiovascular exam: PRESENT: RRR, +S1, +S2 Pulses: PRESENT: normal carotid pulses Vascular exam: PRESENT: normal capillary refill GI/Abdominal exam: PRESENT: normal bowel sounds, soft. ABSENT: distended, guarding, rebound, tenderness Extremities exam: ABSENT: clubbing, pedal edema Musculoskeletal exam: PRESENT: normal inspection. ABSENT: deformity Neurological exam: PRESENT: alert, awake, oriented to person, oriented to place, oriented to situation Psychiatric exam: PRESENT: appropriate affect, normal mood Skin exam: PRESENT: dry, warm Results Laboratory Results: 06/19/18 04:53 06/19/18 04:53 06/19/18 04:53 NT-Pro-B Natriuret Pep 394 Impressions: Cervical Spine CT 06/17/18 17:01 IMPRESSION: CHRONIC DEGENERATIVE CHANGES. NO ACUTE FINDINGS. Head CT 06/17/18 17:01 IMPRESSION: NORMAL BRAIN CT WITHOUT CONTRAST. EVIDENCE OF ACUTE STROKE: NO. Chest X-Ray 06/18/18 09:38 IMPRESSION: 1. NO ACUTE RADIOGRAPHIC FINDING IN THE CHEST. Assessment and Plan - Diagnosis (1) Alcohol withdrawal Qualifiers: Complication of substance-induced condition: with delirium Qualified Code(s): F10.231 - Alcohol dependence with withdrawal delirium Is this a current diagnosis for this admission?: Yes Plan: Continue as needed medication to get him for alcohol withdrawal. I have decreased his scheduled Valium as well as his as needed Ativan in an attempt to wean him off of benzodiazepines totally. Psychiatry recommended resending his IVC. He is also getting vitamin supplementation. I have talked to case management about rehab placement. - Time Time Spent with patient: 25-34 minutes
[2018-06-21] MEDS: DIAZEPAM 2 MG TABLET PO SCH ×2 (15:44→21:26)
[2018-06-21] MEDS: FOLIC ACID 1 MG TABLET PO SCH (17:21)
[2018-06-21] MEDS: NORMAL SALINE 1000 ML 1,000 ML with POTASSIUM CHLORIDE 20 MEQ, MAGNESIUM SULFATE 8 MEQ,... IV SCH ×5 (17:24)
[2018-06-22] MEDS: NORMAL SALINE 1000 ML 1,000 ML IV PRN ×3 (01:00→20:54)
[2018-06-22] MEDS: DIAZEPAM 2 MG TABLET PO SCH ×3 (05:20→22:05)
[2018-06-22] MEDS: BEER 12 OZ CAN PO SCH ×3 (07:55→17:25)
[2018-06-22 09:22] LABS: ANION GAP 8 (5-19); BLOOD UREA NITROGEN 8 mg/dL (7-20); CALCIUM 8.8 mg/dL (8.4-10.2); CARBON DIOXIDE 23 mmol/L (22-30); CHLORIDE 105 mmol/L (98-107); GLUCOSE 117 mg/dL (75-110); POTASSIUM 3.7 mmol/L (3.6-5.0); SODIUM 135.7 mmol/L (137-145)
[2018-06-22] MEDS: ENOXAPARIN SODIUM INJ 30 MG/0.3 ML DISP.SYRIN SUBCUT SCH (10:21)
[2018-06-22] MEDS: FAMOTIDINE 20 MG TABLET PO SCH ×2 (10:26→22:05)
[2018-06-22] MEDS: THIAMINE HCL 100 MG TABLET PO SCH ×2 (10:27→17:25)
[2018-06-22] MEDS: GABAPENTIN 300 MG CAPSULE PO SCH ×3 (10:27→22:05)
[2018-06-22] MEDS: NICOTINE 21 MG/24 HR PATCH.TD24 TD SCH (10:27)
[2018-06-22] MEDS: CLONIDINE 0.2 MG/24 HR PATCH.TDWK TD SCH (10:28)
--- NOTE | 2018-06-22 10:39 | PROGRESS NOTE E ---
Progress Note NAME: JASMEET RIBEIRO : 1955 AGE: 62Y DATE: 06/22/2018 ROOM: 319 SUBJECTIVE: The patient is currently lying in bed. The patient continues to be in DT. The patient is requiring 1:1 sitter. The patient has been afebrile. His blood pressures remain elevated. He is not tachycardic. The patient is unable to provide any meaningful history at this time. REVIEW OF SYSTEMS: A full review of systems cannot be appreciated, given the patient's confusion. MEDICATIONS: Medications have been reviewed. OBJECTIVE: GENERAL: The patient is a 62-year-old male who is awake, alert, and oriented to person, place, time, and situation. He is verbal, conversational, and does not appear to be in any acute distress. VITAL SIGNS: Temperature 97.9, pulse 90, respirations 16, blood pressure 159/81, oxygen saturation is 98% on room air. SKIN: Warm and dry, no rashes, not diaphoretic. HEENT: Pupils are equal, round, reactive to light and accommodation. Conjunctivae pink. No JVP. CVS: Heart is regular. No murmurs or rub. CHEST: Clear, symmetric, unlabored. ABDOMEN: Soft, nontender. EXTREMITIES: No clubbing, cyanosis, or edema. PSYCHIATRIC: The patient is delirious. DIAGNOSTICS/LAB VALUES: Hematology obtained on 06/19/2018: WBC 36.8, hemoglobin 15.4, hematocrit 43.7, platelet count 75,000. Chemistry obtained on 06/22/2018: Sodium 135, potassium 3.7, chloride 105, carbon dioxide 23, BUN 8, creatinine 0.78. Glucose 117. Calcium 8.8. Magnesium 2.1. ASSESSMENT AND PLAN: 1. ACUTE ALCOHOL WITHDRAWAL WITH DELIRIUM TREMENS. The patient continues on oral valium. Will additionally add clonidine as well as gabapentin to help this process. Continue supportive therapy. The patient continues with a 1:1 sitter. 2. HYPONATREMIA, VERY MILD. The patient is currently being hydrated. 3. HYPOKALEMIA. This is supplemented. 4. TRANSAMINITIS. Secondary to alcohol use. 5. HYPERTENSION. Most likely part of the patient's delirium tremens. Again, he has been started on clonidine. DISPOSITION: The patient is a full code. Depending on the patient's symptomatology and diagnostic findings, will reevaluate in the a.m. Time spent on this followup, including assessment, plan, physical examination, patient education and review of records is 20 minutes. DICTATING PHYSICIAN: ASIA JOSEPH NP [id number] PHY#: [id number] ID: [id number] JOB#: [id number] ACCT: [id number] cc: >
[2018-06-22] MEDS ORDERED: CLONIDINE 0.1 MG/24 HR PATCH.TDWK TD SCH (12:00)
[2018-06-22] MEDS: FOLIC ACID 1 MG TABLET PO SCH (17:25)
[2018-06-23] MEDS: THIAMINE HCL 100 MG TABLET PO SCH ×3 (02:12→17:05)
[2018-06-23] MEDS: DIAZEPAM 2 MG TABLET PO SCH ×3 (06:26→21:28)
[2018-06-23] MEDS: GABAPENTIN 300 MG CAPSULE PO SCH ×3 (06:26→21:28)
[2018-06-23] MEDS: NORMAL SALINE 1000 ML 1,000 ML IV PRN ×2 (06:34→20:03)
[2018-06-23] MEDS: BEER 12 OZ CAN PO SCH ×3 (07:50→17:05)
[2018-06-23] MEDS: ENOXAPARIN SODIUM INJ 30 MG/0.3 ML DISP.SYRIN SUBCUT SCH (09:29)
[2018-06-23] MEDS: NICOTINE 21 MG/24 HR PATCH.TD24 TD SCH (09:32)
[2018-06-23] MEDS: FAMOTIDINE 20 MG TABLET PO SCH ×2 (09:33→21:28)
--- NOTE | 2018-06-23 10:19 | PROGRESS NOTE E ---
Progress Note NAME: JASMEET RIBEIRO : 1955 AGE: 62Y DATE: 06/23/2018 ROOM: 319 SUBJECTIVE: The patient is sitting up in bed. He is eating his breakfast. This morning, the patient is more awake and alert than he was yesterday. The patient is still a little shaky. The patient has been afebrile. His blood pressures have been on the high side, but better controlled, and the patient does not voice any other concerns at this time. REVIEW OF SYSTEMS: The rest of the review of systems is negative. MEDICATION: Reviewed. OBJECTIVE: GENERAL: The patient is a 62-year-old male who is awake, alert. He is oriented to person, place and time, without full insight into his situation, but much more alert and oriented. Does not appear to be distressed. VITAL SIGNS: Temperature is 97.8, pulse 84, respirations 24, blood pressure 155/95, oxygen saturation 95% on room air. SKIN: Warm and dry. No rash. Not diaphoretic. HEENT: Pupils equal, round, reactive to light and accommodation. Conjunctivae are pink. No evidence of JVP. CVS: Heart is regular. No murmurs or rubs. CHEST: Clear, symmetrical, unlabored. ABDOMEN: Soft, nontender, nondistended. BACK: No CVA tenderness or sacral edema. EXTREMITIES: No clubbing, cyanosis or edema. PSYCHIATRIC: Appropriate affect, pleasant mood. DIAGNOSTICS: Lab values are as follows: Hematology obtained on 06/19/2018: WBCs are 6.8, hemoglobin is 15.4, hematocrit is 43.7, platelet count is 75,000. Chemistry obtained on 06/22/2018: Sodium is 135, potassium 2.7, chloride is 105, carbon dioxide 23, BUN 8, creatinine is 0.78, glucose 117. Calcium is 8.8, magnesium is 2.1. IMPRESSION AND PLAN: 1. ACUTE ALCOHOL WITHDRAWAL WITH DTs. The patient continues on gabapentin and clonidine, as well as oral Valium. Patient appears to be improving. Will monitor. 2. HYPONATREMIA, VERY MILD. Patient is being rehydrated. 3. HYPOKALEMIA. This has been supplemented. 4. ELEVATED LFTs. This is secondary to the patient's alcohol use. 5. THROMBOCYTOPENIA, MOST LIKELY DUE TO ALCOHOL USE AND MOST LIKELY CHRONIC LIVER DAMAGE. 6. HYPERTENSION. Prior to the patient's DT process, he was started on clonidine for his DTs. DISPOSITION: The patient is a FULL CODE. Pending patient's symptomatology and diagnostic findings, will reevaluate in the a.m. Time spent on this followup, including assessment, plan, physical examination, patient education and review of records, is 20 minutes. DICTATING PHYSICIAN: ASIA JOSEPH NP [id number] Y#: [id number] ID: [id number] JOB#: [id number] ACCT: [id number] cc: >
[2018-06-23] MEDS: FOLIC ACID 1 MG TABLET PO SCH (17:05)
[2018-06-24] MEDS: THIAMINE HCL 100 MG TABLET PO SCH ×3 (02:20→17:26)
[2018-06-24] MEDS: DIAZEPAM 2 MG TABLET PO SCH ×3 (05:58→21:08)
[2018-06-24] MEDS: GABAPENTIN 300 MG CAPSULE PO SCH ×3 (05:58→21:08)
[2018-06-24] MEDS: NORMAL SALINE 1000 ML 1,000 ML IV PRN ×2 (06:21→17:26)
[2018-06-24 07:13] LABS: HEMATOCRIT 40.8 % (37.9-51.0); HEMOGLOBIN 14.1 g/dL (13.5-17.0); MEAN CORPUSCULAR HEMOGLOBIN 33.7 pg (27.0-33.4); MEAN CORPUSCULAR HGB CONC 34.5 g/dL (32.0-36.0); MEAN CORPUSCULAR VOLUME 98 fl (80-97); PLATELET COUNT 175 10^3/uL (150-450); RED BLOOD COUNT 4.18 10^6/uL (4.35-5.55); RED CELL DISTRIBUTION WIDTH 12.7 % (11.5-14.0)
[2018-06-24 07:40] LABS: ANION GAP 5 (5-19); BLOOD UREA NITROGEN 11 mg/dL (7-20); CALCIUM 8.9 mg/dL (8.4-10.2); CARBON DIOXIDE 25 mmol/L (22-30); CHLORIDE 108 mmol/L (98-107); GLUCOSE 91 mg/dL (75-110); POTASSIUM 3.7 mmol/L (3.6-5.0); SODIUM 137.7 mmol/L (137-145)
[2018-06-24] MEDS: BEER 12 OZ CAN PO SCH ×3 (08:36→17:26)
[2018-06-24] MEDS: FAMOTIDINE 20 MG TABLET PO SCH ×2 (10:07→21:08)
[2018-06-24] MEDS: NICOTINE 21 MG/24 HR PATCH.TD24 TD SCH (10:08)
[2018-06-24] MEDS: ENOXAPARIN SODIUM INJ 30 MG/0.3 ML DISP.SYRIN SUBCUT SCH (10:08)
[2018-06-24] MEDS: FOLIC ACID 1 MG TABLET PO SCH (17:26)
[2018-06-25] MEDS: THIAMINE HCL 100 MG TABLET PO SCH ×3 (02:44→17:10)
[2018-06-25] MEDS: DIAZEPAM 2 MG TABLET PO SCH ×2 (05:04→13:27)
[2018-06-25] MEDS: GABAPENTIN 300 MG CAPSULE PO SCH ×3 (05:04→21:18)
[2018-06-25 06:34] LABS: HEMATOCRIT 40.5 % (37.9-51.0); MEAN CORPUSCULAR HEMOGLOBIN 33.3 pg (27.0-33.4); MEAN CORPUSCULAR HGB CONC 34.5 g/dL (32.0-36.0); MEAN CORPUSCULAR VOLUME 96 fl (80-97); PLATELET COUNT 194 10^3/uL (150-450); RED CELL DISTRIBUTION WIDTH 12.6 % (11.5-14.0)
[2018-06-25 06:55] LABS: ALANINE AMINOTRANSFERASE 64 U/L (21-72); ALBUMIN 3.2 g/dL (3.5-5.0); ALKALINE PHOSPHATASE 75 U/L (38-126); ANION GAP 9 (5-19); ASPARTATE AMINO TRANSFERASE 51 U/L (17-59); BILIRUBIN,DIRECT 0.3 mg/dL (0.0-0.4); BILIRUBIN,TOTAL 0.7 mg/dL (0.2-1.3); BLOOD UREA NITROGEN 11 mg/dL (7-20); CALCIUM 9.1 mg/dL (8.4-10.2); CARBON DIOXIDE 24 mmol/L (22-30); CHLORIDE 104 mmol/L (98-107); GLUCOSE 101 mg/dL (75-110); POTASSIUM 3.9 mmol/L (3.6-5.0); SODIUM 137.2 mmol/L (137-145)
[2018-06-25] MEDS: NORMAL SALINE 1000 ML 1,000 ML IV PRN (07:50)
[2018-06-25] MEDS: BEER 12 OZ CAN PO SCH ×2 (08:36→11:27)
[2018-06-25] MEDS: FAMOTIDINE 20 MG TABLET PO SCH ×2 (09:47→21:18)
[2018-06-25] MEDS: ENOXAPARIN SODIUM INJ 30 MG/0.3 ML DISP.SYRIN SUBCUT SCH (09:47)
[2018-06-25] MEDS: NICOTINE 21 MG/24 HR PATCH.TD24 TD SCH (09:47)
--- NOTE | 2018-06-25 14:11 | PROGRESS NOTE E ---
Progress Note NAME: JASMEET RIBEIRO : 1955 AGE: 62Y DATE: 06/24/2018 ROOM: 419 SUBJECTIVE: The patient is sitting on the side of the bed trying to eat his breakfast. The patient is still very shaky. He still has some anxiety. The patient denies any nausea, vomiting, diarrhea. No shortness of breath, dizziness, chest pain. No fevers or chills. The patient has been afebrile. Blood pressures have been in acceptable range, and the patient does not voice any other concerns at this time. BRIEF HISTORY: The patient is a 62-year-old, male with a past medical history of alcohol dependency, as well as suicidal ideation. The patient is currently awaiting placement for [facility] rehabilitation. The patient has been on CIWA protocol, which has included a clonidine patch, gabapentin, and Valium. The patient has been supplemented high-dose thiamine to ensure there is not a Wernicke's process here and the patient will be downgraded today to a telemetry bed. REVIEW OF SYSTEMS: Review of systems negative. Medications have been reviewed. PHYSICAL EXAMINATION: GENERAL: The patient is a 62-year-old, male who is awake, alert, and oriented to person, place, and situation, does not appear to be distressed. VITAL SIGNS: Temperature is 97.7, pulse 71, respirations 24, blood pressure is 144/82, oxygen saturation 95% on room air. SKIN: Warm and dry. No rash. Not diaphoretic. HEENT: Pupils equal, round, reactive to light and accommodation. Conjunctivae pink. No evidence of JVD. CVS: Heart is regular. There is no rub. CHEST: Diminished, symmetrical, unlabored. ABDOMEN: Soft, nontender. EXTREMITIES: No clubbing, cyanosis, edema. PSYCHIATRIC: The patient is a little delayed this morning, but no hallucinations. DIAGNOSTICS/LAB VALUES: Hematology obtained on 06/24/2018: WBC is 6.0, hemoglobin is 14.1, hematocrit is 40.8, platelet count is 175,000. Chemistry obtained on 06/24/2018: Sodium is 137, potassium 3.7, chloride 108, carbon dioxide 25, BUN 11, creatinine 0.74, glucose 91, calcium is 8.9, magnesium is 2.0. IMPRESSION AND PLAN: 1. ALCOHOL DEPENDENCY WITH ACUTE ALCOHOL WITHDRAWAL AND SUBSEQUENT DELIRIUM TREMORS: The patient's hallucinations have improved. He is still very slow, very shaky. Continues on gabapentin and clonidine, as well as Valium and CIWA. Will monitor. 2. HYPERNATREMIA, VERY MILD: The patient has been rehydrated. 3. HYPOKALEMIA: This was supplemented. 4. ELEVATED LFTS: Most likely secondary to alcohol use. This has improved. 5. THROMBOCYTOPENIA: Most likely secondary to alcohol use and chronic liver damage. It has improved at this time. 6. HYPERTENSION: Most likely due to the DT process. The patient was started on clonidine for his DTs. DISPOSITION: The patient is a full code. Pending the patient's symptomatology and diagnostic findings will reevaluate in the a.m. The patient can be downgraded to a medical bed with telemetry. Hospitalist followup including assessment and plan, physical examination, patient education, and review of records is 20 minutes. DICTATING PHYSICIAN: ASIA JOSEPH NP [id number] Y#: [id number] ID: [id number] JOB#: [id number] ACCT: [id number] cc: > MTDD
[2018-06-25] MEDS: FOLIC ACID 1 MG TABLET PO SCH (17:10)
--- NOTE | 2018-06-25 17:18 | PDOC PROGRESS REPORT ---
Subjective Progress Note for:: 06/25/18 Subjective:: No adverse events overnight. No new complaints. He is less tremulous than the last time I saw him. He is a little bit more coherent with his thoughts and his speech. Reason For Visit: ETOH WITHDRAWAL, SUICIDAL IDEATION, Physical Exam Vital Signs: Temp Pulse Resp BP Pulse Ox 98.0 F 84 19 123/74 93 06/25/18 15:49 06/25/18 15:49 06/25/18 15:49 06/25/18 15:49 06/25/18 15:49 Intake & Output 06/24/18 06/25/18 06/26/18 06:59 06:59 06:59 Intake Total 2336 3115 1015 Output Total 1000 1925 1950 Balance 1336 1190 -935 Weight 68.3 kg 68.9 kg General appearance: PRESENT: no acute distress, cooperative, disheveled Respiratory exam: PRESENT: clear to auscultation glenroy, symmetrical, unlabored. ABSENT: accessory muscle use, crackles, prolonged expiratory phas, rhonchi, tachypnea, wheezes Cardiovascular exam: PRESENT: RRR, +S1, +S2 Pulses: PRESENT: normal carotid pulses Vascular exam: PRESENT: normal capillary refill GI/Abdominal exam: PRESENT: normal bowel sounds, soft. ABSENT: distended, guarding, rebound, tenderness Extremities exam: ABSENT: clubbing, pedal edema Musculoskeletal exam: PRESENT: normal inspection. ABSENT: deformity Neurological exam: PRESENT: Awake, alert, oriented to person, oriented to place, oriented to situation Skin exam: PRESENT: dry, warm Results Laboratory Results: 06/25/18 06:11 06/25/18 06:11 06/25/18 06/25/18 06:11 06:11 WBC 6.0 RBC 4.20 L Hgb 14.0 Hct 40.5 MCV 96 MCH 33.3 MCHC 34.5 RDW 12.6 Plt Count 194 Sodium 137.2 Potassium 3.9 Chloride 104 Carbon Dioxide 24 Anion Gap 9 BUN 11 Creatinine 0.71 Est GFR ( Amer) > 60 Est GFR (Non-Af Amer) > 60 Glucose 101 Calcium 9.1 Magnesium 2.0 Total Bilirubin 0.7 AST 51 ALT 64 Alkaline Phosphatase 75 Total Protein 6.0 L Albumin 3.2 L 06/19/18 04:53 NT-Pro-B Natriuret Pep 394 Impressions: Cervical Spine CT 06/17/18 17:01 IMPRESSION: CHRONIC DEGENERATIVE CHANGES. NO ACUTE FINDINGS. Head CT 06/17/18 17:01 IMPRESSION: NORMAL BRAIN CT WITHOUT CONTRAST. EVIDENCE OF ACUTE STROKE: NO. Chest X-Ray 06/18/18 09:38 IMPRESSION: 1. NO ACUTE RADIOGRAPHIC FINDING IN THE CHEST. Assessment and Plan - Diagnosis (1) Alcohol withdrawal Qualifiers: Complication of substance-induced condition: with delirium Qualified Code(s): F10.231 - Alcohol dependence with withdrawal delirium Is this a current diagnosis for this admission?: Yes Plan: This is resolved. We are tapering off of his benzodiazepine support. I think we can stop his beer with each meal. We may be able to discharge him within the next 24-48 hours. - Time Time Spent with patient: 15-24 minutes
[2018-06-26] MEDS: THIAMINE HCL 100 MG TABLET PO SCH ×3 (01:53→17:26)
[2018-06-26] MEDS: GABAPENTIN 300 MG CAPSULE PO SCH ×3 (05:09→21:06)
[2018-06-26] MEDS: NORMAL SALINE 1000 ML 1,000 ML IV PRN (06:14)
[2018-06-26] MEDS: FAMOTIDINE 20 MG TABLET PO SCH ×2 (09:33→21:06)
[2018-06-26] MEDS: ENOXAPARIN SODIUM INJ 30 MG/0.3 ML DISP.SYRIN SUBCUT SCH (09:33)
[2018-06-26] MEDS: NICOTINE 21 MG/24 HR PATCH.TD24 TD SCH (09:33)
--- NOTE | 2018-06-26 16:35 | PDOC PROGRESS REPORT ---
Subjective Progress Note for:: 06/26/18 Subjective:: No adverse events overnight. No new complaints. Clinical condition remains unchanged. Reason For Visit: ETOH WITHDRAWAL, SUICIDAL IDEATION, Physical Exam Vital Signs: Temp Pulse Resp BP Pulse Ox 97.7 F 78 16 136/85 H 93 06/26/18 11:49 06/26/18 14:00 06/26/18 11:49 06/26/18 11:49 06/26/18 11:49 Intake & Output 06/25/18 06/26/18 06/27/18 06:59 06:59 06:59 Intake Total 3115 2355 Output Total 1925 2650 Balance 1190 -295 Weight 68.9 kg 68.9 kg General appearance: PRESENT: no acute distress, cooperative, disheveled Respiratory exam: PRESENT: clear to auscultation glenroy, symmetrical, unlabored. ABSENT: accessory muscle use, crackles, prolonged expiratory phas, rhonchi, tachypnea, wheezes Cardiovascular exam: PRESENT: RRR, +S1, +S2 Pulses: PRESENT: normal carotid pulses Vascular exam: PRESENT: normal capillary refill GI/Abdominal exam: PRESENT: normal bowel sounds, soft. ABSENT: distended, guarding, rebound, tenderness Extremities exam: ABSENT: clubbing, pedal edema Musculoskeletal exam: PRESENT: normal inspection. ABSENT: deformity Neurological exam: PRESENT: Awake, alert, oriented to person, oriented to place, oriented to situation Skin exam: PRESENT: dry, warm Results Laboratory Results: 06/25/18 06:11 06/25/18 06:11 06/19/18 04:53 NT-Pro-B Natriuret Pep 394 Impressions: Cervical Spine CT 06/17/18 17:01 IMPRESSION: CHRONIC DEGENERATIVE CHANGES. NO ACUTE FINDINGS. Head CT 06/17/18 17:01 IMPRESSION: NORMAL BRAIN CT WITHOUT CONTRAST. EVIDENCE OF ACUTE STROKE: NO. Chest X-Ray 06/18/18 09:38 IMPRESSION: 1. NO ACUTE RADIOGRAPHIC FINDING IN THE CHEST. Assessment and Plan - Diagnosis (1) Alcohol withdrawal Qualifiers: Complication of substance-induced condition: with delirium Qualified Code(s): F10.231 - Alcohol dependence with withdrawal delirium Is this a current diagnosis for this admission?: Yes Plan: This is essentially resolved. We stopped all of his benzodiazepines and he was getting a beer with each meal I think we will be able to stop that as well. Because of his homelessness and the [facility], I want to make sure we get a discharge plan in place for him with the case management coordinator before we send him out. - Time Time Spent with patient: 15-24 minutes
[2018-06-26] MEDS: FOLIC ACID 1 MG TABLET PO SCH (17:26)
[2018-06-27] MEDS: THIAMINE HCL 100 MG TABLET PO SCH ×3 (01:58→18:02)
[2018-06-27] MEDS: GABAPENTIN 300 MG CAPSULE PO SCH ×3 (05:04→21:09)
[2018-06-27] MEDS: FAMOTIDINE 20 MG TABLET PO SCH ×2 (09:59→21:09)
[2018-06-27] MEDS: ENOXAPARIN SODIUM INJ 30 MG/0.3 ML DISP.SYRIN SUBCUT SCH (10:00)
[2018-06-27] MEDS: NICOTINE 21 MG/24 HR PATCH.TD24 TD SCH (10:00)
[2018-06-27] MEDS: FOLIC ACID 1 MG TABLET PO SCH (18:02)
--- NOTE | 2018-06-27 19:36 | PDOC PROGRESS REPORT ---
Subjective Progress Note for:: 06/27/18 Subjective:: No adverse events overnight. No new complaints. Clinical condition remains unchanged. I asked him what his plan was and he said he was getting on a [employer] bus and [place] to a [place] center there. I told him it was probably related to leave the hospital soon and he told me that he could not get up, but I told him that with physical therapy he had used a walker and walked 150 feet. Reason For Visit: ETOH WITHDRAWAL, SUICIDAL IDEATION, Physical Exam Vital Signs: Temp Pulse Resp BP Pulse Ox 98.5 F 83 18 145/86 H 98 06/27/18 14:56 06/27/18 14:56 06/27/18 14:56 06/27/18 14:56 06/27/18 14:56 Intake & Output 06/26/18 06/27/18 06/28/18 06:59 06:59 06:59 Intake Total 2355 1143 1360 Output Total 2650 1100 1350 Balance -295 43 10 Weight 68.9 kg 68.9 kg General appearance: PRESENT: no acute distress, cooperative, disheveled Respiratory exam: PRESENT: clear to auscultation glenroy, symmetrical, unlabored. ABSENT: accessory muscle use, crackles, prolonged expiratory phas, rhonchi, tachypnea, wheezes Cardiovascular exam: PRESENT: RRR, +S1, +S2 Pulses: PRESENT: normal carotid pulses Vascular exam: PRESENT: normal capillary refill GI/Abdominal exam: PRESENT: normal bowel sounds, soft. ABSENT: distended, guarding, rebound, tenderness Extremities exam: ABSENT: clubbing, pedal edema Musculoskeletal exam: PRESENT: normal inspection. ABSENT: deformity Neurological exam: PRESENT: Awake, alert, oriented to person, oriented to place, oriented to situation Skin exam: PRESENT: dry, warm Results Laboratory Results: 06/25/18 06:11 06/25/18 06:11 06/19/18 04:53 NT-Pro-B Natriuret Pep 394 Impressions: Cervical Spine CT 06/17/18 17:01 IMPRESSION: CHRONIC DEGENERATIVE CHANGES. NO ACUTE FINDINGS. Head CT 06/17/18 17:01 IMPRESSION: NORMAL BRAIN CT WITHOUT CONTRAST. EVIDENCE OF ACUTE STROKE: NO. Chest X-Ray 06/18/18 09:38 IMPRESSION: 1. NO ACUTE RADIOGRAPHIC FINDING IN THE CHEST. Assessment and Plan - Diagnosis (1) Alcohol withdrawal Qualifiers: Complication of substance-induced condition: with delirium Qualified Code(s): F10.231 - Alcohol dependence with withdrawal delirium Is this a current diagnosis for this admission?: Yes Plan: This is essentially resolved. We stopped all of his benzodiazepines and he was getting a beer with each meal I think we will be able to stop that as well. We have been trying to give him an opportunity to make a plan for himself once he is discharged, but I now suspect that he is trying to drag out his hospitalization. I told him that he has this afternoon to get his plans together, because I am going to discharge him in the morning. - Time Time Spent with patient: 15-24 minutes
[2018-06-28] MEDS: THIAMINE HCL 100 MG TABLET PO SCH ×3 (02:08→17:37)
[2018-06-28] MEDS: GABAPENTIN 300 MG CAPSULE PO SCH ×3 (05:13→21:16)
[2018-06-28] MEDS: ENOXAPARIN SODIUM INJ 30 MG/0.3 ML DISP.SYRIN SUBCUT SCH (08:44)
[2018-06-28] MEDS: FAMOTIDINE 20 MG TABLET PO SCH ×2 (08:48→21:16)
[2018-06-28] MEDS: NICOTINE 21 MG/24 HR PATCH.TD24 TD SCH (08:48)
--- NOTE | 2018-06-28 17:01 | PDOC PROGRESS REPORT ---
Subjective Progress Note for:: 06/28/18 Subjective:: No adverse events overnight. No new complaints. Clinical condition remains unchanged. I asked him what his plan was and he said he was getting on a Grey[employer] bus and [place] to a [place] center there. I told him it was probably related to leave the hospital soon and he told me that he could not get up, but I told him that with physical therapy he had used a walker and walked 150 feet. Physical therapy did recommend that he go to a SNF for safety. Reason For Visit: ETOH WITHDRAWAL, SUICIDAL IDEATION, Physical Exam Vital Signs: Temp Pulse Resp BP Pulse Ox 97.7 F 74 18 106/73 94 06/28/18 07:53 06/28/18 14:00 06/28/18 07:53 06/28/18 07:53 06/28/18 07:53 Intake & Output 06/27/18 06/28/18 06/29/18 06:59 06:59 06:59 Intake Total 1143 2080 560 Output Total 1100 1875 750 Balance 43 205 -190 Weight 68.9 kg 68.9 kg General appearance: PRESENT: no acute distress, cooperative, disheveled Respiratory exam: PRESENT: clear to auscultation glenroy, symmetrical, unlabored. ABSENT: accessory muscle use, crackles, prolonged expiratory phas, rhonchi, tachypnea, wheezes Cardiovascular exam: PRESENT: RRR, +S1, +S2 Pulses: PRESENT: normal carotid pulses Vascular exam: PRESENT: normal capillary refill GI/Abdominal exam: PRESENT: normal bowel sounds, soft. ABSENT: distended, guarding, rebound, tenderness Extremities exam: ABSENT: clubbing, pedal edema Musculoskeletal exam: PRESENT: normal inspection. ABSENT: deformity Neurological exam: PRESENT: Awake, alert, oriented to person, oriented to place, oriented to situation Skin exam: PRESENT: dry, warm Results Laboratory Results: 06/25/18 06:11 06/25/18 06:11 06/19/18 04:53 NT-Pro-B Natriuret Pep 394 Impressions: Cervical Spine CT 06/17/18 17:01 IMPRESSION: CHRONIC DEGENERATIVE CHANGES. NO ACUTE FINDINGS. Head CT 06/17/18 17:01 IMPRESSION: NORMAL BRAIN CT WITHOUT CONTRAST. EVIDENCE OF ACUTE STROKE: NO. Chest X-Ray 06/18/18 09:38 IMPRESSION: 1. NO ACUTE RADIOGRAPHIC FINDING IN THE CHEST. Assessment and Plan - Diagnosis (1) Alcohol withdrawal Qualifiers: Complication of substance-induced condition: with delirium Qualified Code(s): F10.231 - Alcohol dependence with withdrawal delirium Is this a current diagnosis for this admission?: Yes Plan: This is essentially resolved. We stopped all of his benzodiazepines and he was getting a beer with each meal I think we will be able to stop that as well. We have been trying to give him an opportunity to make a plan for himself once he is discharged. Given the physical therapy recommended SNF placement at discharge, [facility] and [facility]. - Time Time Spent with patient: 15-24 minutes
[2018-06-28] MEDS: FOLIC ACID 1 MG TABLET PO SCH (17:37)
[2018-06-29] MEDS: THIAMINE HCL 100 MG TABLET PO SCH ×3 (02:37→17:08)
[2018-06-29] MEDS: GABAPENTIN 300 MG CAPSULE PO SCH ×3 (05:27→21:10)
[2018-06-29] MEDS: NICOTINE 21 MG/24 HR PATCH.TD24 TD SCH (09:12)
[2018-06-29] MEDS: ENOXAPARIN SODIUM INJ 30 MG/0.3 ML DISP.SYRIN SUBCUT SCH (09:12)
[2018-06-29] MEDS: FAMOTIDINE 20 MG TABLET PO SCH ×2 (09:12→21:10)
--- NOTE | 2018-06-29 15:59 | PDOC PROGRESS REPORT ---
Subjective Progress Note for:: 06/29/18 Subjective:: No adverse events overnight. No new complaints. Clinical condition remains unchanged. Reason For Visit: ETOH WITHDRAWAL, SUICIDAL IDEATION, Physical Exam Vital Signs: Temp Pulse Resp BP Pulse Ox 98.2 F 82 15 98/60 L 96 06/29/18 15:03 06/29/18 15:03 06/29/18 15:03 06/29/18 15:03 06/29/18 15:03 Intake & Output 06/28/18 06/29/18 06/30/18 06:59 06:59 06:59 Intake Total 2080 2537 Output Total 1875 2325 Balance 205 212 Weight 68.9 kg 71.2 kg General appearance: PRESENT: no acute distress, cooperative, disheveled Respiratory exam: PRESENT: clear to auscultation glenroy, symmetrical, unlabored. ABSENT: accessory muscle use, crackles, prolonged expiratory phas, rhonchi, tachypnea, wheezes Cardiovascular exam: PRESENT: RRR, +S1, +S2 Pulses: PRESENT: normal carotid pulses Vascular exam: PRESENT: normal capillary refill GI/Abdominal exam: PRESENT: normal bowel sounds, soft. ABSENT: distended, guarding, rebound, tenderness Extremities exam: ABSENT: clubbing, pedal edema Musculoskeletal exam: PRESENT: normal inspection. ABSENT: deformity Neurological exam: PRESENT: Awake, alert, oriented to person, oriented to place, oriented to situation Skin exam: PRESENT: dry, warm Results Laboratory Results: 06/25/18 06:11 06/25/18 06:11 06/19/18 04:53 NT-Pro-B Natriuret Pep 394 Impressions: Cervical Spine CT 06/17/18 17:01 IMPRESSION: CHRONIC DEGENERATIVE CHANGES. NO ACUTE FINDINGS. Head CT 06/17/18 17:01 IMPRESSION: NORMAL BRAIN CT WITHOUT CONTRAST. EVIDENCE OF ACUTE STROKE: NO. Chest X-Ray 06/18/18 09:38 IMPRESSION: 1. NO ACUTE RADIOGRAPHIC FINDING IN THE CHEST. Assessment and Plan - Diagnosis (1) Alcohol withdrawal Qualifiers: Complication of substance-induced condition: with delirium Qualified Code(s): F10.231 - Alcohol dependence with withdrawal delirium Is this a current diagnosis for this admission?: Yes Plan: This is essentially resolved. We stopped all of his benzodiazepines and he was getting a beer with each meal I think we will be able to stop that as well. We have been trying to give him an opportunity to make a plan for himself once he is discharged. Given that physical therapy recommended SNF placement at discharge, [facility] and are [facility]. - Time Time Spent with patient: 15-24 minutes
[2018-06-29] MEDS: FOLIC ACID 1 MG TABLET PO SCH (17:08)
[2018-06-30] MEDS: CLONIDINE 0.2 MG/24 HR PATCH.TDWK TD SCH (01:14)
[2018-06-30] MEDS: THIAMINE HCL 100 MG TABLET PO SCH ×3 (03:18→21:40)
[2018-06-30] MEDS: GABAPENTIN 300 MG CAPSULE PO SCH ×3 (05:36→21:39)
[2018-06-30] MEDS: ENOXAPARIN SODIUM INJ 30 MG/0.3 ML DISP.SYRIN SUBCUT SCH (09:38)
[2018-06-30] MEDS: FAMOTIDINE 20 MG TABLET PO SCH ×2 (09:38→21:39)
[2018-06-30] MEDS: NICOTINE 21 MG/24 HR PATCH.TD24 TD SCH (09:38)
--- NOTE | 2018-06-30 16:12 | PDOC PROGRESS REPORT ---
Subjective Progress Note for:: 06/30/18 Subjective:: No adverse events overnight. No new complaints. Clinical condition remains unchanged. Reason For Visit: ETOH WITHDRAWAL, SUICIDAL IDEATION, Physical Exam Vital Signs: Temp Pulse Resp BP Pulse Ox 97.3 F 92 17 119/80 100 06/30/18 11:52 06/30/18 14:00 06/30/18 11:52 06/30/18 11:52 06/30/18 11:52 Intake & Output 06/29/18 06/30/18 07/01/18 06:59 06:59 06:59 Intake Total 2537 2698 Output Total 2325 1650 Balance 212 1048 Weight 71.2 kg 73.8 kg General appearance: PRESENT: no acute distress, cooperative, disheveled Respiratory exam: PRESENT: clear to auscultation glenroy, symmetrical, unlabored. ABSENT: accessory muscle use, crackles, prolonged expiratory phas, rhonchi, tachypnea, wheezes Cardiovascular exam: PRESENT: RRR, +S1, +S2 Pulses: PRESENT: normal carotid pulses Vascular exam: PRESENT: normal capillary refill GI/Abdominal exam: PRESENT: normal bowel sounds, soft. ABSENT: distended, guarding, rebound, tenderness Extremities exam: ABSENT: clubbing, pedal edema Musculoskeletal exam: PRESENT: normal inspection. ABSENT: deformity Neurological exam: PRESENT: Awake, alert, oriented to person, oriented to place, oriented to situation Skin exam: PRESENT: dry, warm Results Laboratory Results: 06/25/18 06:11 06/25/18 06:11 06/19/18 04:53 NT-Pro-B Natriuret Pep 394 Impressions: Cervical Spine CT 06/17/18 17:01 IMPRESSION: CHRONIC DEGENERATIVE CHANGES. NO ACUTE FINDINGS. Head CT 06/17/18 17:01 IMPRESSION: NORMAL BRAIN CT WITHOUT CONTRAST. EVIDENCE OF ACUTE STROKE: NO. Chest X-Ray 06/18/18 09:38 IMPRESSION: 1. NO ACUTE RADIOGRAPHIC FINDING IN THE CHEST. Assessment and Plan - Diagnosis (1) Alcohol withdrawal Qualifiers: Complication of substance-induced condition: with delirium Qualified Code(s): F10.231 - Alcohol dependence with withdrawal delirium Is this a current diagnosis for this admission?: Yes Plan: This is essentially resolved. We stopped all of his benzodiazepines and he was getting a beer with each meal I think we will be able to stop that as well. We have been trying to give him an opportunity to make a plan for himself once he is discharged. Given that physical therapy recommended SNF placement at discharge, [facility] and are [facility] from them. - Time Time Spent with patient: 15-24 minutes
[2018-06-30] MEDS: FOLIC ACID 1 MG TABLET PO SCH (17:07)
[2018-07-01] MEDS: THIAMINE HCL 100 MG TABLET PO SCH ×3 (05:45→22:40)
[2018-07-01] MEDS: GABAPENTIN 300 MG CAPSULE PO SCH ×3 (05:45→22:40)
[2018-07-01] MEDS: NICOTINE 21 MG/24 HR PATCH.TD24 TD SCH (09:26)
[2018-07-01] MEDS: FAMOTIDINE 20 MG TABLET PO SCH ×2 (09:27→22:40)
[2018-07-01] MEDS: ENOXAPARIN SODIUM INJ 30 MG/0.3 ML DISP.SYRIN SUBCUT SCH (09:31)
[2018-07-01] MEDS: ENOXAPARIN SODIUM INJ 40 MG/0.4 ML DISP.SYRIN SUBCUT SCH (10:56)
--- NOTE | 2018-07-01 16:16 | PDOC PROGRESS REPORT ---
Subjective Progress Note for:: 07/01/18 Subjective:: No adverse events overnight. No new complaints. Clinical condition remains unchanged. Eating and drinking without difficulty. He is been working with physical therapy when they come by. He apparently was able to do 100 feet with a walker and minimal assistance, but he needed a moderate assist of 2 to get to standing. Reason For Visit: ETOH WITHDRAWAL, SUICIDAL IDEATION, Physical Exam Vital Signs: Temp Pulse Resp BP Pulse Ox 98.2 F 100 18 100/71 96 07/01/18 10:59 07/01/18 14:00 07/01/18 10:59 07/01/18 10:59 07/01/18 10:59 Intake & Output 06/30/18 07/01/18 07/02/18 06:59 06:59 06:59 Intake Total 2698 2780 Output Total 1650 1910 Balance 1048 870 Weight 73.8 kg 74.8 kg General appearance: PRESENT: no acute distress, cooperative, disheveled Respiratory exam: PRESENT: clear to auscultation glenroy, symmetrical, unlabored. ABSENT: accessory muscle use, crackles, prolonged expiratory phas, rhonchi, tachypnea, wheezes Cardiovascular exam: PRESENT: RRR, +S1, +S2 Pulses: PRESENT: normal carotid pulses Vascular exam: PRESENT: normal capillary refill GI/Abdominal exam: PRESENT: normal bowel sounds, soft. ABSENT: distended, guarding, rebound, tenderness Extremities exam: ABSENT: clubbing, pedal edema Musculoskeletal exam: PRESENT: normal inspection. ABSENT: deformity Neurological exam: PRESENT: Awake, alert, oriented to person, oriented to place, oriented to situation Skin exam: PRESENT: dry, warm Results Laboratory Results: 06/25/18 06:11 06/25/18 06:11 06/19/18 04:53 NT-Pro-B Natriuret Pep 394 Impressions: Cervical Spine CT 06/17/18 17:01 IMPRESSION: CHRONIC DEGENERATIVE CHANGES. NO ACUTE FINDINGS. Head CT 06/17/18 17:01 IMPRESSION: NORMAL BRAIN CT WITHOUT CONTRAST. EVIDENCE OF ACUTE STROKE: NO. Chest X-Ray 06/18/18 09:38 IMPRESSION: 1. NO ACUTE RADIOGRAPHIC FINDING IN THE CHEST. Assessment and Plan - Diagnosis (1) Alcohol withdrawal Qualifiers: Complication of substance-induced condition: with delirium Qualified Code(s): F10.231 - Alcohol dependence with withdrawal delirium Is this a current diagnosis for this admission?: Yes Plan: This is essentially resolved. We stopped all of his benzodiazepines and he was getting a beer with each meal I think we will be able to stop that as well. We have been trying to give him an opportunity to make a plan for himself once he is discharged. Given that physical therapy recommended SNF placement at discharge, [facility] and are [facility] from them. (2) HTN (hypertension) Qualifiers: Hypertension type: essential hypertension Qualified Code(s): I10 - Essential (primary) hypertension Is this a current diagnosis for this admission?: Yes Plan: Well-controlled on the current regimen - Time Time Spent with patient: 15-24 minutes
[2018-07-01] MEDS: FOLIC ACID 1 MG TABLET PO SCH (17:00)
[2018-07-02] MEDS: GABAPENTIN 300 MG CAPSULE PO SCH (05:33)
[2018-07-02] MEDS: THIAMINE HCL 100 MG TABLET PO SCH (05:33)
[2018-07-02] MEDS: NICOTINE 21 MG/24 HR PATCH.TD24 TD SCH (09:19)
[2018-07-02] MEDS: FAMOTIDINE 20 MG TABLET PO SCH (09:19)
[2018-07-02] MEDS: ENOXAPARIN SODIUM INJ 40 MG/0.4 ML DISP.SYRIN SUBCUT SCH (09:19)
[2018-07-02 12:09] VITALS: BP 116/80
--- NOTE | 2018-07-02 16:20 | PDOC DISCHARGE SUMMARY ---
General - Admit/Disc Date/PCP Admission Date/Primary Care Provider: 06/18/18 10:04 [facility] Discharge Date: 07/02/18 - Discharge Diagnosis (1) Alcohol withdrawal Is this a current diagnosis for this admission?: Yes Summary: 62-year-old male came to the emergency room for alcohol intoxication and suicidal ideation on 06/18/2018. In the emergency room is found to be tachycardic, hypertensive, agitated, anxious and tremulous having difficulty in communicating properly. Patient was placed on IVC. During the hospital stay he was treated with IV Ativan as needed, scheduled Valium 10 mg IV every 8 hours, banana bag nightly, p.o. folic acid and 1 can of beer 3 times a day with meals. Patient under observation for DTs. No complications during the hospital stay. This morning patient alert and awake oriented communicating well he able to walk and ambulate by himself. He does not need any assistance to walk. Patient agreed to go home today and agreed to follow-up with [facility] in [place] (2) Suicidal ideation Is this a current diagnosis for this admission?: Yes Summary: [id number]-old male initially presented to the ED with suicidal ideation and endorses the plan of hanging himself he was placed under involuntary commitment. Psych consult was done initially is on 2 observation and suicidal precautions were implemented. Psych consult was done on 06/19/2018 and 06/20/2018 no medications are recommended at that time. Their impression is severe alcohol use disorder, major depressive disorder, PTSD. She denies any suicidal ideation or thoughts this morning. Willing to go home today. (3) HTN (hypertension) Is this a current diagnosis for this admission?: No Summary: 07/02/2018 patient has history of essential hypertension blood pressure today is 106/66 stable. Patient is on low-sodium diet. Patient does not need any antihypertensive to take home. Initial high blood pressures may be secondary to alcohol withdrawal. - Additional Information Resuscitation Status: Full Code Discharge Diet: Regular Discharge Activity: Activity As Tolerated, Balance Activity w/Rest Home Medications: Famotidine [Pepcid 20 mg Tablet] 20 mg PO Q12 tablet 07/02/18 Folic Acid [Folvite 1 mg Tablet] 1 mg PO QPM tablet 07/02/18 Gabapentin [Neurontin 300 mg Capsule] 300 mg PO Q8 capsule 07/02/18 History of Present Illness History of Present Illness: JASMEET RIBEIRO is a 62 year old male 62 year old male who presented to [facility] for ETOH intoxication and suicidal ideat ion. The patient states he moved to [place] to live with his son, "which has been a nightmare." He states he recently became homeless because he "no longer lives with" his son - does not indicate if he left on his own or if son kicked him out. The patient stated he has a plan to hang himself. Upon arrival to the ED the patient's BAL was 328. The patient was seen by [facility] and placed on IVC papers. Unfortunately, the patient remained in the emergency department for nearly 24 hours before being admitted to the hospitalist service. During that time the patient received multiple IVF boluses and doses of Ativan, but he was deemed unfit for discharge by the ED physician. Upon assessment, the patient is resting in bed on room air. He is tachycardic, hypertensive, agitated, anxious, tremulous and having difficulty answering all interview questions appropriately. The patient has no major complaints at the time of the interview other than feeling anxious. When asked about his suicidal ideation it is "beginning to improve," he no longer feels "as bad" as when he checked in. Patient endorses a history of seizures when withdrawing from alcohol. States no one has ever witnessed him having a seizure, but he will "wake up on the floor and feel very disoriented." The patient states that he wants to get help, that he wants to stop drinking, and that he wants to move away from [place]. The patient states he has a number of relatives that live out of state who can help support him. Patient was seen by a member of the psych team, who felt that the patient needed to be placed on IVC papers. The patient was admitted to the hospitalist service for ETOH withdrawal. Physical Exam Vital Signs: Temp Pulse Resp BP Pulse Ox 98.3 F 85 18 116/80 96 07/02/18 12:23 07/02/18 12:23 07/02/18 12:23 07/02/18 12:23 07/02/18 12:23 Intake & Output 07/01/18 07/02/18 07/03/18 06:59 06:59 06:59 Intake Total 2780 2579 Output Total 1910 725 Balance 870 1854 Weight 74.8 kg 77.8 kg General appearance: PRESENT: no acute distress Head exam: PRESENT: atraumatic Eye exam: PRESENT: PERRLA Neck exam: ABSENT: carotid bruit, JVD, lymphadenopathy, thyromegaly Respiratory exam: PRESENT: clear to auscultation [place]. ABSENT: rales, rhonchi, wheezes Cardiovascular exam: PRESENT: RRR. ABSENT: diastolic murmur, rubs, systolic murmur GI/Abdominal exam: PRESENT: normal bowel sounds, soft. ABSENT: distended, gua rding, mass, organolmegaly, rebound, tenderness Extremities exam: PRESENT: full ROM. ABSENT: calf tenderness, clubbing, pedal edema Neurological exam: PRESENT: alert, awake, oriented to person, oriented to place, oriented to time, oriented to situation, CN II-XII grossly intact. ABSENT: motor sensory deficit Psychiatric exam: PRESENT: appropriate affect, normal mood. ABSENT: homicidal ideation, suicidal ideation Results Laboratory Results: 06/25/18 06:11 06/25/18 06:11 06/19/18 04:53 NT-Pro-B Natriuret Pep 394 Impressions: Cervical Spine CT 06/17/18 17:01 IMPRESSION: CHRONIC DEGENERATIVE CHANGES. NO ACUTE FINDINGS. Head CT 06/17/18 17:01 IMPRESSION: NORMAL BRAIN CT WITHOUT CONTRAST. EVIDENCE OF ACUTE STROKE: NO. Chest X-Ray 06/18/18 09:38 IMPRESSION: 1. NO ACUTE RADIOGRAPHIC FINDING IN THE CHEST. Qualifiers - * PATIENT BEING DISCHARGED WITH ANY OF THE FOLLOWING DIAGNOSIS: No VTE patient discharged on overlapping Therapy?: No
== END 2018-07-02 13:30 | disposition home or self-care (01) | DRG 897 ==
LOC: EDBD → ER 14:28 → EH 06-18 10:04 → 3S 06-18 16:54 → 3W 06-18 17:41 → 4W 06-24 22:57
PROVIDERS: ADMIT Internal Medicine; ATTEND Internal Medicine
PROC: HZ2ZZZZ Detoxification Services for Substance Abuse Treatment (ICD-10-PCS; principal; 2018-06-18)
DX: F10.231 Alcohol dependence with withdrawal delirium (principal); R45.851 Suicidal ideations; E87.1 Hypo-osmolality and hyponatremia; D69.6 Thrombocytopenia, unspecified; F10.229 Alcohol dependence with intoxication, unspecified; Y90.8 Blood alcohol level of 240 mg/100 ml or more; Z59.0 Homelessness; F32.9 Major depressive disorder, single episode, unspecified; F43.10 Post-traumatic stress disorder, unspecified; I10 Essential (primary) hypertension; E78.5 Hyperlipidemia, unspecified; J44.9 Chronic obstructive pulmonary disease, unspecified; M16.0 Bilateral primary osteoarthritis of hip; F41.9 Anxiety disorder, unspecified; E87.6 Hypokalemia; R74.0 Nonspecific elevation of levels of transaminase and lactic acid dehydrogenase [LDH]; F17.210 Nicotine dependence, cigarettes, uncomplicated
CPT/HCPCS: 36415; 70450; 71045; 72125; 80048; 80053; 80061; 80307; 81001; 83735; 83880; 84443; 85025; 85027; 90471; 90715; 93005; 93010; 96361; 96365; 96366; 96375; 96376; 99285; J1630; J1650; J2060; J3360; J3411; J3475; J3480; J3490; J7030; J7050; J7120